=== PATIENT | male | born 1995 | race Caucasian/White ===

== ENCOUNTER 2020-09-15 10:20 | Day surgery (SDC) | payer SELFPAY ==
[2020-09-15] MEDS ORDERED: Fentanyl 100 MCG/2 ML VIAL ONE ×3 (11:19→13:30)
[2020-09-15] MEDS ORDERED: Bupivacaine 0.25% HCL 30 ML VIAL ONE (11:53)
[2020-09-15] MEDS ORDERED: EPINEPHrine 1 MG/ML AMP ONE (11:53)
[2020-09-15] MEDS ORDERED: Midazolam HCl 2 mg/2 ml Vial ONE (12:00)
[2020-09-15] MEDS ORDERED: Scopolamine 1.5 mg/72 hour Patch ONE (12:01)
[2020-09-15] MEDS ORDERED: Famotidine/PF 20 mg/2ml Vial ONE (12:01)
[2020-09-15] MEDS ORDERED: Rocuronium Bromide 10 MG/ML (10ML VIAL) ONE (12:08)
[2020-09-15] MEDS ORDERED: PROPOFOL 200 MG/20 ML VIAL ONE (12:08)
[2020-09-15] MEDS ORDERED: Ketorolac Tromethamine 30 MG/ML VIAL ONE (12:08)
[2020-09-15] MEDS ORDERED: Lidocaine 1% PF 5 ML VIAL ONE (12:08)
[2020-09-15] MEDS ORDERED: Ondansetron PF 4 MG/2 ML Vial ONE (12:08)
[2020-09-15] MEDS ORDERED: Dexamethasone 20 MG/5 ML VIAL ONE (12:08)
[2020-09-15] MEDS ORDERED: Succinylcholine 200 MG/10 ml SYRINGE FS ONE (12:08)
[2020-09-15] MEDS ORDERED: SUGAMMADEX SODIUM 200 MG/2 ML VIAL ONE ×2 (12:12→12:53)
[2020-09-15] MEDS ORDERED: HYDROcodone/Acetaminophen 5/325 mg Tablet ONE (14:51)
== END 2020-09-15 15:30 | disposition home or self-care (01) ==
LOC: SDC 10:20
PROVIDERS: ATTEND Surgery
PROC: 0DTJ4ZZ Resection of Appendix, Percutaneous Endoscopic Approach (ICD-10-PCS; principal; 2020-09-15)
DX: K35.80 Unspecified acute appendicitis (principal); Z20.822 Contact with and (suspected) exposure to COVID-19
CPT/HCPCS: 88304; J0171; J1100; J1885; J2250; J2405; J2704; J3010; S0020; S0028